=== PATIENT | female | born 1990 | race Caucasian/White ===

== ENCOUNTER 2016-09-23 16:04 | Emergency (ER) | payer BC, MEDICAID ==
[2016-09-23 16:12] VITALS: RESP 18; TEMP 97.9
--- NOTE | 2016-09-23 16:52 | EDPHY ---
HPI/HX/ROS/PE/MDM Narrative: CHIEF COMPLAINT: Abnormal seizure yesterday. HISTORY OF PRESENT ILLNESS: This patient is a 26 year old female with history of seizure disorder arriving with her friend and service dog complaining of shoulder pain and generalized weakness following an abnormal seizure last night. She states she has had seizures since age 8, which usually present as focal or absence seizures. She states she has not been evaluated in around 10 years, and generally treats her symptoms with CBD oil. Yesterday, she reports she was feeling "strange" and began slurring her words, and her Chihuahua alerted her. She states she made it home and began experiencing a falling sensation and like her "brain was fuzzy". She reports she can usually lessen the severity of her seizures by making herself cold, so she turned on cold water in the tub and got in. She states her seizures usually last 1-1.5 minutes, but reports that this episode lasted around 8 minutes, and she felt paralyzed following the event. She states she did not call emergency services at that time, and instead was able to crawl to bed and sleep. This morning, she reports her shoulder hurts and states "I feel like I hit my head hard" and complains of continuing generalized weakness. She endorses some dysuria. Denies recent illness. No fever, chills, chest pain, shortness of breath, palpitations, vomiting, diarrhea. REVIEW OF SYSTEMS: Aside from elements discussed in the HPI, a comprehensive 10-point review of systems was reviewed and is negative. PAST MEDICAL HISTORY: Mnire's disease. Seizure disorder (CBD oil). Gallbladder problems SOCIAL HISTORY: Lives in [place], [place]. Originally from [place]. Uses marijuana. Nonsmoker. No alcohol use. No illicit drug use. VITAL SIGNS: Reviewed by me GENERAL: Well-developed, well-nourished, resting comfortably in no respiratory distress. HEENT: Atraumatic. Ears: Small postauricular lymph node on right side. Eyes: No icterus, no injection. PERRL, EOMI, no nystagmus. Mouth: moist mucous membranes. No trauma or lacerations. No erythema or lesions. Neck: supple with no adenopathy. Nontender. LUNGS: Clear to auscultation bilaterally, no wheezes, rhonchi or rales. CARDIAC: Regular rate and rhythm, no rubs, murmurs or gallops. ABDOMEN: Soft, nontender, nondistended, bowel sounds normal. BACK: No CVA tenderness. EXTREMITIES: Right shoulder: No deformity or bony abnormality. Tenderness on proximal humerus. No A/C pain. Good ROM with discomfort. Right elbow: Discomfort with pronation and supination. Good pulses, brisk capillary refill. Extremity exam is otherwise unremarkable. NEURO: Alert and oriented, cranial nerves 2-12 are intact. Motor strength 5/5 throughout. Sensation is intact to light touch. Patient is oriented x3, conversant. SKIN: Warm and dry, no rash. PSYCHIATRIC: Normal mentation, no agitation. Portions of this note were transcribed by a manager medical. I personally performed a history, physical exam, medical decision making, and confirmed accuracy of information the transcribed note. ED Course: This patient is a 26 year old female with history of seizure disorder and Mni re's disease presenting following a reported abnormal seizure yesterday evening. Physical exam reveals tenderness over right proximal humerus. Good range of motion with discomfort. No deformities or bony abnormalities noted. Plan for labs including CBC, CHEM, UA, and BHCG. Plan for CT head and x-ray shoulder to rule out acute processes. X-ray of shoulder shows no osseous abnormalities. 18:[address] Kraft, radiologist, regarding CT head. CT unremarkable. Plan to discharge home in good condition with instructions to follow up with neurology. Return precautions discussed. The patient is comfortable with this plan. MDM: Differential diagnosis of the patient's seizure was considered including but not limited to electrolyte abnormality, alcohol withdrawal, medication noncompliance, head injury, meningitis, encephalitis, and breakthrough seizure. - Data Points Imaging Results: Head CT Impression: Head CT within normal limits Read by Dr. Kraft. Right shoulder x-ray: Impression: There is no acute osseous abnormality Read by Dr. Kraft. Imaging: Discussed imaging studies w/ ssis ssrs developer Radiologist, I viewed and interpreted images myself Laboratory Results: Laboratory Results 09/23/16 17:45 09/23/16 17:45 General Time Seen by Provider: 09/23/16 16:30 Initial Vital Signs: Initial Vital Signs Temperature (C) 36.6 C 09/23/16 16:09 Heart Rate 94 09/23/16 16:09 Respiratory Rate 18 09/23/16 16:09 Blood Pressure 117/72 09/23/16 16:09 O2 Sat (%) 98 09/23/16 16:09 O2 Delivery Mode Room Air Allergies/Adverse Reactions: latex Allergy (Verified 09/23/16 16:12) cashews Allergy (Uncoded 09/23/16 16:12) Home Medications: Medication Instructions Recorded NK [No Known Home Meds] 09/23/16 Departure - Departure Disposition: Home, Routine, Self-Care Clinical Impression: Seizure disorder Shoulder pain, right Qualifiers: Chronicity: acute Qualified Code(s): M25.511 - Pain in right shoulder Condition: Good Instructions: Recurrent Seizures in Adults (ED), Shoulder Pain (ED) Additional Instructions: 1. We have referred you to our neurologist on air director, and you may follow up when you return to [facility]. You should follow up sooner with a primary care physician or neurologist if desired for continuing concerning symptoms. 2. You may use ice, heat, and Ibuprofen 600mg every 6-8 hours with food to relieve your shoulder pain. 3. Return to the Emergency Department for recurrent abnormal seizures or other worsening of condition. Referrals: REMEDIOS SANDHU [Other] - As per Instructions Remedios Ricardo DO [Medical Doctor] - As per Instructions Report Scribed for: Lola Chang Report Scribed by: Eryn Llamas Date of Report: 09/23/16 Time of Report: 16:52
[2016-09-23 17:52] LABS: % IMMATURE GRANULYOCYTES 0.1 % (0.0-1.1); ABSOLUTE IMMATURE GRANULOCYTES 0.01 10^3/uL (0.00-0.10); ADD DIFF? NO; ADD MORPH? NO; ADD SCAN? NO; ATYPICAL LYMPHOCYTE FLAG 10 (0-99); FRAGMENT RBC FLAG 0 (0-99); HEMATOCRIT 41.3 % (38.0-47.0); HEMOGLOBIN 14.3 g/dL (12.6-16.3); LEFT SHIFT FLG 0 (0-99); LIPEMIA HEMOLYSIS FLAG 90 (0-99); MEAN CELL HEMOGLOBIN 30.4 pg (27.9-34.1); MEAN CELL HEMOGLOBIN CONCENTR. 34.6 g/dL (32.4-36.7); MEAN CELL VOLUME 87.9 fL (81.5-99.8); MEAN PLATELET VOLUME 10.2 fL (8.7-11.7); PLATELET CLUMPS FLAG 0 (0-99); PLATELET COUNT 248 10^3/uL (150-400); RED CELL DISTRIBUTION WIDTH 11.9 % (11.5-15.2)
[2016-09-23 18:13] LABS: ANION GAP 10 mEq/L (8-16); CALCIUM 9.3 mg/dL (8.5-10.4); CARBON DIOXIDE 23 mEq/l (22-31); CHLORIDE 104 mEq/L (97-110); CREATININE 0.8 mg/dL (0.6-1.0); GLOMERULAR FILTRATION RATE > 60; GLUCOSE 86 mg/dL (70-100); SODIUM 137 mEq/L (134-144)
[2016-09-23 18:53] VITALS: BP 118/68; PULSE 66; O2SAT 97
== END 2016-09-23 18:45 | disposition home or self-care (01) ==
DX: G40.909 Epilepsy, unspecified, not intractable, without status epilepticus (principal); M25.511 Pain in right shoulder; Z91.040 Latex allergy status

== ENCOUNTER 2016-12-26 15:30 | Emergency (ER) | payer MEDICAID ==
--- NOTE | 2016-12-26 15:35 | EDPHY ---
H & P Time Seen by Provider: 12/26/16 15:33 HPI/ROS: Chief complaint. Allergic reaction HPI. 26-year-old female stung 3 times by wasps on her left leg, left buttock, low back. Stings occurred just prior to arrival. Patient notes swelling to her throat, shortness of breath, redness and swelling at the area of the stings. No medication prior to arrival. Previous history of anaphylaxis. Does not carry EpiPen ROS Constitutional. no fever/chills, no weakness Eyes. no problems with vision ENT. Throat swelling Cardiovascular. no chest pain Respiratory. Shortness of breath Abdominal. no abdominal pain, no nausea/vomiting, no diarrhea . no problems urinating MS. no calf pain/swelling, no neck/back pain, no joint pain Skin. Stings Lymph. no swollen glands Neuro. no headache, no dizziness, no difficulty walking or with speech Past Medical/Surgical History: Meniere's disease, seizure disorder Social History: , nonsmoker, no alcohol Smoking Status: Never smoked Physical Exam: General Appearance: Alert well-developed female moderate distress vital signs are stable Eyes: Pupils equal and round no pallor or injection. ENT, uvula swollen Respiratory: There are no retractions, lungs are clear to auscultation. Cardiovascular: Regular rate and rhythm. Gastrointestinal: Abdomen is soft and nontender, no masses, bowel sounds normal. Neurological: Awake and alert, sensory and motor exams grossly normal. Skin: Evidence of sting behind the left knee, left upper thigh, dorsum left hand. No evidence of retained stingers or foreign bodies Musculoskeletal: Neck is supple nontender. Extremities symmetrical, full range of motion. Psychiatric: Patient is oriented X 3, there is no agitation. Constitutional: Initial Vital Signs Temperature (C) 36.6 C 12/26/16 15:30 Heart Rate 70 12/26/16 15:30 Respiratory Rate 18 12/26/16 15:30 Blood Pressure 118/84 H 12/26/16 15:30 O2 Sat (%) 100 12/26/16 15:30 O2 Delivery Mode Room Air Allergies/Adverse Reactions: latex Allergy (Verified 12/26/16 15:38) fleas Allergy (Severe, Uncoded 12/26/16 15:40) Anaphylaxis cashews Allergy (Uncoded 09/23/16 16:12) walnuts Allergy (Uncoded 12/26/16 15:40) Home Medications: Medication Instructions Recorded Cbd 12/26/16 EPINEPHRINE [EPIPEN] 0.3 mg IM ONCE #2 syr 12/26/16 predniSONE 40 mg PO DAILY #4 tablet 12/26/16 Medical Decision Making Procedures: IV normal saline, monitor. Ranitidine, Benadryl, Solu-Medrol IV. Albuterol updraft ED Course/Re-evaluation: Re-evaluation at 4:50 p.m.. Patient had been feeling a little bit shaky and so she is given juice and milk and crackers as sandwich to eat. She says that her throat still feels swollen re-examination shows mildly swollen uvula but it is not worse. She tells me she is breathing better and her lungs are clear to auscultation. She otherwise appears stable. We will do an i-STAT. Unable to draw blood off IV for i-STAT. Unable to get blood for i-STAT Re-evaluation at 5:40 p.m. however the patient feels well and tells me she has been having some low blood sugar sensation issues over the past week but after eating she now feels well and no longer shaky your any sensation of low blood sugar. She is speaking in full sentences. No stridor. Patient and I discussed treatment plan including criteria for return importance of follow-up further evaluation. She expresses understanding and agreement Differential Diagnosis: This appears to be severe allergic reactions secondary to 3 wasp stings. She may have had an episode of hypoglycemia but now with treatment of oral food and drink her symptoms have resolved. Departure - Departure Disposition: Home, Routine, Self-Care Clinical Impression: Allergic reaction Qualifiers: Encounter type: initial encounter Qualified Code(s): T78.40XA - Allergy, unspecified, initial encounter Condition: Good Instructions: General Allergic Reaction (ED) Additional Instructions: Prednisone each day for 2 days beginning tomorrow. We have given you medication similar to the oral prednisone today in the ER through your IV and this will last the next 24 hours. May use Benadryl in addition. Return for worsening symptoms. Referrals: NONE *PRIMARY CARE P,. [Primary Care Provider] - As per Instructions [facility] [Outside] - As per Instructions Gideon Seo MD [Medical Doctor] - As per Instructions Prescriptions: EPINEPHRINE [EPIPEN] 0.3 mg IM ONCE #2 syr predniSONE 40 mg PO DAILY #4 tablet
[2016-12-26 18:00] VITALS: RESP 16; TEMP 97.7
[2016-12-26 18:14] VITALS: BP 119/71; PULSE 77; O2SAT 96
[2016-12-26] MEDS ORDERED: methylPREDNISolone SOD SUCC 125 MG/2 ML VIAL IVP ONE (18:15)
[2016-12-26] MEDS ORDERED: ALBUTEROL 3 ML DEYVIAL IH ONE (18:15)
[2016-12-26] MEDS ORDERED: RANITIDINE 50 MG/2 ML VIAL IVP ONE (18:15)
[2016-12-26] MEDS ORDERED: RANITIDINE 50 MG/2 ML VIAL ONE (19:47)
[2016-12-26] MEDS ORDERED: ALBUTEROL 3 ML DEYVIAL ONE (19:47)
[2016-12-26] MEDS ORDERED: methylPREDNISolone SOD SUCC 125 MG/2 ML VIAL ONE (19:47)
== END 2016-12-26 17:59 | disposition home or self-care (01) ==
DX: T63.461A Toxic effect of venom of wasps, accidental (unintentional), initial encounter (principal); Z91.040 Latex allergy status
CPT/HCPCS: 96374; J0171; J1200; J2780

== ENCOUNTER 2017-06-08 13:30 | Emergency (ER) | payer MEDICAID ==
--- NOTE | 2017-06-08 14:39 | EDPHY ---
H & P Stated Complaint: r inguinal/r lower quad abd pain since yesterday Source: Patient Exam Limitations: No limitations - Personal History LMP (Females 10-55): 1-7 Days Ago Current Tetanus/Diphtheria Vaccine: Unsure - Medical/Surgical History Hx Asthma: Yes Hx Chronic Respiratory Disease: No Hx Diabetes: No Hx Cardiac Disease: No Hx Renal Disease: No Hx Cirrhosis: No Hx Alcoholism: No Hx HIV/AIDS: No Hx Splenectomy or Spleen Trauma: No Other PMH: Seizures. - Social History Smoking Status: Never smoked Time Seen by Provider: 06/08/17 14:38 HPI/ROS: HPI: This is a 27-year-old female who presents with Chief Complaint: r inguinal/r lower quad abd pain since yesterday Location: Right inguinal/right lower quadrant Quality: Pain Duration: Since yesterday Signs and Symptoms: no fever, + nausea, + vomiting, no hematemesis, no blood in stool, no abdominal bloating, no diarrhea, no back pain, no urinary symptoms, no vaginal bleeding/discharge, no indigestion, no chest pain, no shortness of breath Timing: Acute, worse with palpation Severity: Moderate Context: Patient reports that she was performing stretching exercises in yoga poses last evening when she went into a deep hip flex and started to feel right groin pain; moderate; constant in nature. Described as nonradiating. Patient reports that the pain has not stopped since yesterday afternoon as was worse with certain movements and touching the area. She is wearing latex gloves as she reports that she has had the flu twice the season. She had an umbilical hernia as the infant that did not require surgical intervention. Patient reports that yesterday she felt nauseous with 1 episode of vomiting and 2 episodes of diarrhea. LMP 1-7 days ago. She went to the urgent care today and they sent her to the emergency room for appendicitis rule out. Modifying Factors: None Comment: ROS: see HPI Constitutional: No fever, no chills, no weight loss Eyes: No blurred vision Respiratory: No shortness of breath, no cough Cardiovascular: No chest pain, no palpitations Gastrointestinal: No nausea, no vomiting, no diarrhea, no hematemesis, no blood in stool Genitourinary: No dysuria, no blood in urine Extremities: No myalgias, no edema Neurologic: No weakness, no numbness Skin: No rashes, no petechiae Hematologic: No bruising, no bleeding MEDICAL/SURGICAL/SOCIAL HISTORY: Medical history: Seizure disorder Surgical history: Denies Social history: Student. CONSTITUTIONAL: Extremely well-appearing adult white female, green and blue colored hair, awake and alert, no obvious distress HEENT: Atraumatic and normocephalic, PERRL, EOMI. Tympanic membranes clear. Oropharynx clear, no exudate and moist pink mucosa. Airway patent. No lymphadenopathy. No meningismus. Cardiovascular: Normal S1/S2, regular rate, regular rhythm, without murmur rub or gallop. PULMONARY/CHEST: Symmetrical and nontender. Clear to auscultation bilaterally. Good air movement. No accessory muscle usage. ABDOMEN: Soft, nondistended, nontender, no rebound, no guarding, no peritoneal signs, no masses or organomegaly. No CVAT. No inguinal hernia appreciated. Moderate tenderness in the inguinal canal. PELVIC: no pain with rocking; bilateral hips flexion 125 degrees, extension 30 degrees, moderate pain internal rotation and no pain external rotation. BACK: No midline tenderness, no paraspinous spasm, deep tendon reflexes 2/2, no pain with straight leg raise EXTREMITIES: 2/2 pulses, strength 5/5, no deformities, no clubbing, no cyanosis or edema. NEUROLOGICAL: no focal neuro deficits. GCS 15. SKIN: Warm and dry, no erythema. no rash. Good capillary refill. (Kiara Rodriguez) Constitutional: Initial Vital Signs Temperature (C) 98.4 F 06/08/17 13:37 Heart Rate 71 06/08/17 13:37 Respiratory Rate 17 06/08/17 13:37 Blood Pressure 120/70 06/08/17 13:37 O2 Sat (%) 99 06/08/17 13:37 O2 Delivery Mode Room Air Allergies/Adverse Reactions: latex Allergy (Verified 06/08/17 13:36) Sulfa (Sulfonamide Antibiotics) Allergy (Verified 06/08/17 13:37) fleas Allergy (Severe, Uncoded 12/26/16 15:40) Anaphylaxis cashews Allergy (Uncoded 09/23/16 16:12) walnuts Allergy (Uncoded 12/26/16 15:40) Home Medications: Medication Instructions Recorded Cbd 12/26/16 EPINEPHRINE [EPIPEN] 0.3 mg IM ONCE #2 syr 12/26/16 Diazepam [Valium 5 MG (*)] 5 mg PO TID PRN #9 tab 06/08/17 Naproxen [Naprosyn] 500 mg PO Q12 #14 tablet 06/08/17 Medical Decision Making - Diagnostics Imaging Results: Imaging Impressions Abdomen CT 06/08/17 14:51 Impression: 1. There is a 1.6 cm posterior subcapsular right hepatic lobe mildly complex cyst. A 6 month sonographic reevaluation is recommended. 2. Normal appearance of the appendix. 3. Mild constipation/obstipation. 4. Small amount of free fluid the pelvic cul-de-sac, and extending to the right adnexal region. There is a slightly involuting 1.9 x 2.0 x 1.9 cm left ovarian follicular cyst. 5. There is no evidence of a periumbilical, ventral wall, or inguinal hernia. Findings were discussed with Baldev Rincon PA-C at 18:02, on 06/08/2017. ED Course/Re-evaluation: Labs, urinalysis, IV fluids, IV medications, CT abdomen and pelvis scan ordered Vital signs reviewed upon arrival in stable. Given 1 L normal saline and IV morphine 4 mg 1540: Labs reviewed and grossly. 1549: Contacted by nurse that patient reports that now she gets lightheaded and woozy with contrast last time she had a for CT scan. IV Solu-Medrol 125 mg and IV Benadryl 50 mg ordered for premedication for CT. Denies any history of anaphylaxis/respiratory distress/airway compromise. 1735: End of Shift. Signed over to CHRISTOPHER Rincon pending CT A/P results and disposition. This patient was seen under the supervision of my primary supervising physician. I evaluated care for this patient independently. (Kiara Rodriguez) Differential Diagnosis: Abdominal pain including but not limited to appendicitis, cholecystitis, gastritis and urinary tract infection. (Kiara Rodrgiuez) Other Provider: 5:37 p.m. I assumed care of this patient at this time. I discussed the case with Kiara Rodriguez PA-C. At time of patient is signed over, the patient was pending a CT scan of the abdomen pelvis for right groin pain. Her vital signs are within normal limits. I reviewed her laboratory studies. She is currently in the CT scanner at this time and I will evaluate shortly. 6:05 p.m. Notified by radiologist Dr. Kraft. We reviewed the CT scan of the abdomen and pelvis. There is no evidence of acute appendicitis. There is an incidental note of cyst in the posterior attic lobe as documented described. There is a possible ruptured left ovarian cyst. Some fluid in the right adnexa but no adnexal mass. 6:10 p.m. I have evaluated the patient this time. Her abdominal exam is benign. She does have reproducible right groin pain over the hip flexors. It is worse with active range of motion and less so with passive range of motion. She has a non acute, benign abdominal examination with normal vital signs. Her pain is tolerable. I did discuss the incidental hepatic cyst that needs ultrasound in 6 months. I discussed the pelvic fluid, left ovarian cyst. I will provide the on-call primary care physician for to call. She is comfortable with going home and wants to go home at this time. Provide short course of symptomatic medications. We discussed strict ED precautions. She is to return here immediately for any worsening pain, nausea, vomiting, pelvic pain. She is to return within 48 hr if no improvement. She is comfortable this plan and discharged home stable condition. (Baldev Rincon) - Data Points Laboratory Results: Laboratory Results 06/08/17 14:50 06/08/17 14:50 06/08/17 06/08/17 06/08/17 15:58 14:50 14:50 WBC RBC Hgb Hct MCV MCH MCHC RDW Plt Count MPV Neut % (Auto) Lymph % (Auto) [place] % (Auto) Eos % (Auto) Baso % (Auto) Nucleat RBC Rel Count Absolute Neuts (auto) Absolute Lymphs (auto) Absolute Monos (auto) Absolute Eos (auto) Absolute Basos (auto) Absolute Nucleated RBC Immature Gran % Immature Gran # Sodium 143 mEq/L mEq/L (135-145) Potassium 4.1 mEq/L mEq/L (3.5-5.2) Chloride 103 mEq/L mEq/L (97-110) Carbon Dioxide 27 mEq/l mEq/l (22-31) Anion Gap 13 mEq/L mEq/L (8-16) BUN 14 mg/dL mg/dL (7-23) Creatinine 0.8 mg/dL mg/dL (0.6-1.0) Estimated GFR > 60 Glucose 91 mg/dL mg/dL (70-100) Calcium 9.4 mg/dL mg/dL (8.5-10.4) Total Bilirubin 0.8 mg/dL mg/dL (0.1-1.4) Conjugated Bilirubin 0.2 mg/dL mg/dL (0.0-0.5) Unconjugated Bilirubin 0.6 mg/dL mg/dL (0.0-1.1) AST 29 IU/L IU/L (14-46) ALT 45 IU/L IU/L (9-52) Alkaline Phosphatase 52 IU/L IU/L (38-126) Total Protein 7.5 g/dL g/dL (6.3-8.2) Albumin 4.6 g/dL g/dL (3.5-5.0) Lipase 69 IU/L IU/L (23-300) Beta HCG, Qual NEGATIVE Urine Color YELLOW Urine Appearance CLEAR Urine pH 7.0 (5.0-7.5) Ur Specific [place] 1.012 (1.002-1.030) Urine Protein NEGATIVE (NEGATIVE) Urine Ketones NEGATIVE (NEGATIVE) Urine Blood NEGATIVE (NEGATIVE) Urine Nitrate NEGATIVE (NEGATIVE) Urine Bilirubin NEGATIVE (NEGATIVE) Urine Urobilinogen NEGATIVE EU EU (0.2-1.0) Ur Leukocyte Esterase NEGATIVE (NEGATIVE) Urine Glucose NEGATIVE (NEGATIVE) 06/08/17 14:50 WBC 6.15 10^3/uL 10^3/uL (3.80-9.50) RBC 4.94 10^6/uL 10^6/uL (4.18-5.33) Hgb 14.8 g/dL g/dL (12.6-16.3) Hct 43.0 % % (38.0-47.0) MCV 87.0 fL fL (81.5-99.8) MCH 30.0 pg pg (27.9-34.1) MCHC 34.4 g/dL g/dL (32.4-36.7) RDW 12.2 % % (11.5-15.2) Plt Count 270 10^3/uL 10^3/uL (150-400) MPV 9.4 fL fL (8.7-11.7) Neut % (Auto) 57.0 % % (39.3-74.2) Lymph % (Auto) 34.1 % % (15.0-45.0) [place] % (Auto) 7.0 % % (4.5-13.0) Eos % (Auto) 1.0 % % (0.6-7.6) Baso % (Auto) 0.7 % % (0.3-1.7) Nucleat RBC Rel Count 0.0 % % (0.0-0.2) Absolute Neuts (auto) 3.51 10^3/uL 10^3/uL (1.70-6.50) Absolute Lymphs (auto) 2.10 10^3/uL 10^3/uL (1.00-3.00) Absolute Monos (auto) 0.43 10^3/uL 10^3/uL (0.30-0.80) Absolute Eos (auto) 0.06 10^3/uL 10^3/uL (0.03-0.40) Absolute Basos (auto) 0.04 10^3/uL 10^3/uL (0.02-0.10) Absolute Nucleated RBC 0.00 10^3/uL 10^3/uL (0-0.01) Immature Gran % 0.2 % % (0.0-1.1) Immature Gran # 0.01 10^3/uL 10^3/uL (0.00-0.10) Sodium Potassium Chloride Carbon Dioxide Anion Gap BUN Creatinine Estimated GFR Glucose Calcium Total Bilirubin Conjugated Bilirubin Unconjugated Bilirubin AST ALT Alkaline Phosphatase Total Protein Albumin Lipase Beta HCG, Qual Urine Color Urine Appearance Urine pH Ur Specific [place] Urine Protein Urine Ketones Urine Blood Urine Nitrate Urine Bilirubin Urine Urobilinogen Ur Leukocyte Esterase Urine Glucose Medications Given: Discontinued Medications Diphenhydramine HCl (Benadryl Injection) 50 mg IVP EDNOW ONE Stop: 06/08/17 15:49 Last Admin: 06/08/17 15:53 Dose: 50 mg Sodium Chloride (Ns) 1,000 mls @ 0 mls/hr IV EDNOW ONE; Wide Open PRN Reason: Protocol Stop: 06/08/17 14:52 Last Admin: 06/08/17 14:58 Dose: 1,000 mls Methylprednisolone Sodium Succinate (Solu-Medrol) 125 mg IVP EDNOW ONE Stop: 06/08/17 15:49 Last Admin: 06/08/17 15:53 Dose: 125 mg Morphine Sulfate (Morphine) 4 mg IVP EDNOW ONE Stop: 06/08/17 14:52 Last Admin: 06/08/17 14:58 Dose: 4 mg Departure - Departure Disposition: Home, Routine, Self-Care Clinical Impression: Hepatic cyst Strain of right inguinal muscle Qualifiers: Encounter type: initial encounter Qualified Code(s): S39.013A - Strain of muscle, fascia and tendon of pelvis, initial encounter Condition: Good Instructions: Groin Strain (ED) Additional Instructions: Take Tylenol 650 mg every 4 hours with food as needed for pain. Apply ice for 30 minutes at a time; 2-3 times per day for the next 1-2 days. RICE therapy. Avoid any activities that causing discomfort until you are fully healed. Return to the ER immediately if you experience new or worsening pain, discoloration, numbness, tingling, or any other symptoms that concern you. 1. Follow up with the on-call primary care physician to establish an for the follow-up of the hepatic cyst for six-month ultrasound 2. ED precautions as discussed Referrals: PCP Not In,Dictionary [Medical Doctor] - As per Instructions Enrique Amezcua [place] [place] - As per Instructions Prescriptions: Diazepam [Valium 5 MG (*)] 5 mg PO TID PRN #9 tab PRN Reason: Spasms Naproxen [Naprosyn] 500 mg PO Q12 #14 tablet
[2017-06-08] MEDS ORDERED: NS 1,000 ML IV ONE (14:51)
[2017-06-08 15:02] LABS: PLATELET COUNT 270 10^3/uL (150-400)
[2017-06-08] MEDS ORDERED: IOPAMIDOL (ISOVUE-300) 100 ML BTL ONE (15:36)
[2017-06-08] MEDS ORDERED: methylPREDNISolone SOD SUCC 125 MG/2 ML VIAL IVP ONE (15:48)
[2017-06-08 18:28] VITALS: BP 108/71; PULSE 79; RESP 18; TEMP 97.9; O2SAT 98
== END 2017-06-08 18:29 | disposition home or self-care (01) ==
DX: S39.013A Strain of muscle, fascia and tendon of pelvis, initial encounter (principal); K76.89 Other specified diseases of liver; J45.909 Unspecified asthma, uncomplicated; E86.9 Volume depletion, unspecified; Z91.040 Latex allergy status; X50.9XXA Other and unspecified overexertion or strenuous movements or postures, initial encounter; Y93.89 Activity, other specified
CPT/HCPCS: 96374; J1200; J2270; J2930; Q9967

== ENCOUNTER 2018-04-10 04:25 | Emergency (ER) | payer MEDICAID ==
[2018-04-10] MEDS ORDERED: ACETAMINOPHEN 500 MG TAB PO ONE (04:45)
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
[2018-04-10] MEDS ORDERED: OSELTAMIVIR PHOSPHATE 75 MG CAP PO ONE (05:42)
[2018-04-10 05:56] VITALS: BP 119/78
== END 2018-04-10 05:55 | disposition home or self-care (01) ==
DX: J09.X2 Influenza due to identified novel influenza A virus with other respiratory manifestations (principal)

== ENCOUNTER 2018-04-11 11:32 | Emergency (ER) | payer MEDICAID ==
--- NOTE | 2018-04-11 11:42 | EDPHY ---
H & P Time Seen by Provider: 04/11/18 11:37 HPI/ROS: Chief complaint. Flu HPI. 28-year-old female presents emergency department after diagnosis of flu in the ER yesterday. No flu shot. She was prescribed Tamiflu and says that her tongue swelled up and had blisters on it and then she passed out and maybe had a seizure. She did not take any further doses of Tamiflu. She has had vomiting today. She has had a hard time sleeping. She has been coughing. She has been achy. No fever. She has also been exposed to mono in the last 10 days and has been sharing drinking cups with the patient had mono. ROS 10 systems were reviewed and negative with the exception of the elements mentioned in the history of present illness Past Medical/Surgical History: Seizure disorder treated with CBD oral, osteoarthritis, asthma, Meniere's disease Social History: Single, nonsmoker, no alcohol Smoking Status: Never smoked Physical Exam: General Appearance: Alert well-developed female mild distress vital signs are stable Eyes: Pupils equal and round no pallor or injection. ENT, tympanic membranes are normal. Pharynx without injection. Mucous membranes are moist. Tongue without any findings of swelling or blistering Respiratory: No retractions. Mild inspiratory expiratory rhonchi Cardiovascular: Regular rate and rhythm. Gastrointestinal: Abdomen is soft and nontender, no masses, bowel sounds normal. Neurological: Awake and alert, sensory and motor exams grossly normal. Skin: Warm and dry, no rashes. Musculoskeletal: Neck is supple nontender. Extremities symmetrical, full range of motion. Psychiatric: Patient is oriented X 3, there is no agitation. Constitutional: Initial Vital Signs Temperature (C) 36.7 C 04/11/18 11:35 Heart Rate 86 04/11/18 11:35 Respiratory Rate 18 04/11/18 11:35 Blood Pressure 120/72 04/11/18 11:35 O2 Sat (%) 99 04/11/18 11:35 O2 Delivery Mode Room Air O2 (L/minute) 36.9 Allergies/Adverse Reactions: latex Allergy (Verified 04/11/18 11:34) Sulfa (Sulfonamide Antibiotics) Allergy (Verified 04/11/18 11:34) fleas Allergy (Severe, Uncoded 04/11/18 11:34) Anaphylaxis cashews Allergy (Uncoded 04/11/18 11:34) walnuts Allergy (Uncoded 04/11/18 11:34) Home Medications: Medication Instructions Recorded Cbd 12/26/16 Albuterol Hfa Anes Only 04/10/18 Oseltamivir Phosphate [Tamiflu 75 75 mg PO BID 5 Days cap 04/10/18 mg (*)] Promethazine HCl [Phenergan 25mg 25 mg PO Q4-6PRN PRN #12 tab 04/11/18 (*)] Medical Decision Making Procedures: IV normal saline. Phenergan IV ED Course/Re-evaluation: Re-evaluation 1:10 p.m.. Patient is stable. Nausea is better. There has been no vomiting during her stay in the ED. Patient and I discussed laboratory evaluation, treatment plan including criteria for return importance of follow-up and further evaluation. She expresses understanding and agreement Differential Diagnosis: Patient has influenza. She had been exposed to mono but the test is negative. Patient was concerned about electrolyte abnormalities in these are normal. - Data Points Laboratory Results: Laboratory Results 04/11/18 11:50 04/11/18 11:50 04/11/18 04/11/18 04/11/18 11:50 11:50 11:50 WBC 3.59 10^3/uL L 10^3/uL (3.80-9.50) RBC 5.12 10^6/uL 10^6/uL (4.18-5.33) Hgb 15.3 g/dL g/dL (12.6-16.3) Hct 45.1 % % (38.0-47.0) MCV 88.1 fL fL (81.5-99.8) MCH 29.9 pg pg (27.9-34.1) MCHC 33.9 g/dL g/dL (32.4-36.7) RDW 12.4 % % (11.5-15.2) Plt Count 219 10^3/uL 10^3/uL (150-400) MPV 9.8 fL fL (8.7-11.7) Neut % (Auto) 60.7 % % (39.3-74.2) Lymph % (Auto) 26.2 % % (15.0-45.0) [place] % (Auto) 12.5 % % (4.5-13.0) Eos % (Auto) 0.0 % L % (0.6-7.6) Baso % (Auto) 0.6 % % (0.3-1.7) Nucleat RBC Rel Count 0.0 % % (0.0-0.2) Absolute Neuts (auto) 2.18 10^3/uL 10^3/uL (1.70-6.50) Absolute Lymphs (auto) 0.94 10^3/uL L 10^3/uL (1.00-3.00) Absolute Monos (auto) 0.45 10^3/uL 10^3/uL (0.30-0.80) Absolute Eos (auto) 0.00 10^3/uL L 10^3/uL (0.03-0.40) Absolute Basos (auto) 0.02 10^3/uL 10^3/uL (0.02-0.10) Absolute Nucleated RBC 0.00 10^3/uL 10^3/uL (0-0.01) Immature Gran % 0.0 % % (0.0-1.1) Immature Gran # 0.00 10^3/uL 10^3/uL (0.00-0.10) Sodium 137 mEq/L mEq/L (135-145) Potassium 3.9 mEq/L mEq/L (3.5-5.2) Chloride 105 mEq/L mEq/L (97-110) Carbon Dioxide 23 mEq/l mEq/l (22-31) Anion Gap 9 mEq/L mEq/L (6-14) BUN 11 mg/dL mg/dL (7-23) Creatinine 0.9 mg/dL mg/dL (0.6-1.0) Estimated GFR > 60 Glucose 89 mg/dL mg/dL (70-100) Calcium 8.9 mg/dL mg/dL (8.5-10.4) Monoscreen NEGATIVE (NEGATIVE) Medications Given: Discontinued Medications Sodium Chloride (Ns) 1,000 mls @ 0 mls/hr IV ONCE ONE PRN Reason: Wide Open Stop: 04/11/18 11:52 Last Admin: 04/11/18 11:57 Dose: 1,000 mls Promethazine HCl (Phenergan) 12.5 mg IVP ONCE ONE Stop: 04/11/18 11:54 Last Admin: 04/11/18 11:57 Dose: 12.5 mg Departure - Departure Disposition: Home, Routine, Self-Care Clinical Impression: Influenza A Condition: Good Instructions: Influenza (ED) Additional Instructions: Frequent, small sips fluids well nauseated. Gradual diet advancement. Phenergan as needed for nausea vomiting. Return for worsening symptoms. Re-evaluation in 2-3 days if not improving Referrals: NONE *PRIMARY CARE P,. [Primary Care Provider] - As per Instructions Preethi Rodriguez MD [Medical Doctor] - 2-3 days, if not improved Prescriptions: Promethazine HCl [Phenergan 25mg (*)] 25 mg PO Q4-6PRN PRN #12 tab PRN Reason: Nausea/Vomiting, Use 1st
[2018-04-11] MEDS ORDERED: NS 1,000 ML IV ONE (11:51)
[2018-04-11] MEDS ORDERED: PROMETHAZINE HCL 25 MG/ML INJ IVP ONE (11:53)
[2018-04-11 12:06] LABS: PLATELET COUNT 219 10^3/uL (150-400)
[2018-04-11 13:30] VITALS: BP 145/84
== END 2018-04-11 13:28 | disposition home or self-care (01) ==
DX: J10.1 Influenza due to other identified influenza virus with other respiratory manifestations (principal); R11.0 Nausea
CPT/HCPCS: 96374; J2550

== ENCOUNTER 2018-07-01 15:16 | Emergency (ER) | payer MEDICAID ==
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
[2018-07-01 15:31] VITALS: BP 110/62
== END 2018-07-01 16:06 | disposition home or self-care (01) ==
DX: M79.89 Other specified soft tissue disorders (principal); M35.7 Hypermobility syndrome; W23.1XXA Caught, crushed, jammed, or pinched between stationary objects, initial encounter; Y92.002 Bathroom of unspecified non-institutional (private) residence as the place of occurrence of the external cause; Y93.E8 Activity, other personal hygiene